=== PATIENT | male | born 1990 | race African-American/Black ===

== ENCOUNTER 2021-08-24 12:42 | Emergency (ER) | payer BC ==
[~2021-08-24] VITALS: Ht 170.2 cm; Wt 69.4 kg
[2021-08-24 12:58] VITALS: BP 110/79
--- NOTE | 2021-08-24 13:02 | NUR ---
Patient ambulated to bed 8.
--- NOTE | 2021-08-24 13:03 | NUR ---
SUZIE Berg at bedside evaluating patient
[2021-08-24] MEDS ORDERED: IBUPROFEN 600 MG TAB PO ONE (13:10)
--- NOTE | 2021-08-24 13:12 | NUR ---
PT TAKEN TO XRAY VIA W/C
--- NOTE | 2021-08-24 13:12 | NUR ---
31 Y/O MALE BIB SELF WITH C/O RIGHT SHOULDER PAIN X2 WEEKS, STATES HE WAS WRESTLING WITH HIS FRIENDS, STATES "I THINK IT POPPED OUT OF PLACE." DENIES TAKING MEDS FOR PAIN. PT STATES 7/10 PAIN. MEDHX: DENIES ALLERGIES: ROBERTA
[2021-08-24] MEDS ORDERED: IBUP-2213 PO (13:41)
--- NOTE | 2021-08-24 14:31 | NUR ---
PT PLACED IN RIGHT SHOULDER SLING
[2021-08-24 14:46] VITALS: BP 110/79
--- NOTE | 2021-08-24 14:46 | NUR ---
Patient discharged with v/s stable. Written and verbal after care instructions given. Patient alert, oriented and verbalized understanding of instructions. Ambulatory with steady gait. All questions addressed prior to discharge. ID band removed. Patient advised to follow up with PMD. Rx of ibuprofen given. Opportunity to ask questions provided and answered.
== END 2021-08-24 14:46 | disposition home or self-care (01) ==
LOC: MED 12:42
DX: S43.101A Unspecified dislocation of right acromioclavicular joint, initial encounter (principal); W18.39XA Other fall on same level, initial encounter; Y93.89 Activity, other specified; Y92.89 Other specified places as the place of occurrence of the external cause; Y99.8 Other external cause status
CPT/HCPCS: 73030; 99283